=== PATIENT | male | born 1975 | race Caucasian/White ===

== ENCOUNTER 2021-05-19 14:52 | Emergency (ER) | payer OTHER ==
[2021-05-19] MEDS ORDERED: ceFAZolin 2 GM in Premix Bag 1 BAG IV ONE (17:00)
[2021-05-19] MEDS ORDERED: Bupivacaine 0.5% 10 ML SDV INJECT ONE (17:01)
--- NOTE | 2021-05-19 18:01 | CR ---
Indication: Fifth digit injury Technique: Three views left hand Comparison: None Findings/Impression: Soft tissue avulsion of the left 5th finger tip. Displaced fracture of the distal tuft. Remainder of the osseous structures are intact. Dictated by Pam Harrington MD @ 05/19/2021 6:00:[address] Pam Harrington @ May 19 2021 6:00PM
--- NOTE | 2021-05-19 18:29 | EDM.PDOC ---
ED HPI GENERAL MEDICAL PROBLEM - General Chief Complaint: Laceration Stated Complaint: LEFT HAND PINKY FINGER CUT OFF Time Seen by Provider: 05/19/21 16:21 Source of Information: Reports: Patient History Limitations: Reports: No Limitations - History of Present Illness INITIAL COMMENTS - FREE TEXT/NARRATIVE: HISTORY AND PHYSICAL: History of present illness: Patient is a 46-year-old male who presents emergency room today with concern of left hand pinky finger injury that occurred just prior to arrival to the emergency room. Patient states that his finger caught between 2 heavy piping while at work and states that the fingernail completely came off. Patient states that he is up-to-date on his tetanus within 5 years. Patient denies any other symptoms or concerns. Patient denies fever, chills, chest pain, shortness of breath, or cough. Denies headache, neck stiff ness, change in vision, syncope, or near syncope. Denies nausea, vomiting, abdominal pain, diarrhea, constipation, or dysuria. Has not noted any blood in urine or stool. Patient has been eating and drinking appropriately. Review of systems: As per history of present illness and below otherwise all systems reviewed and negative. Past medical history: As per history of present illness and as reviewed below otherwise noncontributory. Surgical history: As per history of present illness and as reviewed below otherwise noncontributory. Social history: See social history for further information Family history: As per history of present illness and as reviewed below otherwise noncontributory. Physical exam: General: Patient is alert, oriented, and in no acute distress. Patient sitting comfortably on exam table. Vitals stable and reviewed by me. HEENT: Atraumatic, normocephalic, pupils equal and reactive bilaterally, negative for conjunctival pallor or scleral icterus, mucous membranes moist, TMs normal bilaterally, throat clear, neck supple, nontender, trachea midline. No drooling or trismus noted. No meningeal signs. No hot potato voice noted. Lungs: Clear to auscultation, breath sounds equal bilaterally, chest nontender. Heart: S1S2, regular rate and rhythm without overt murmur Abdomen: Soft, nondistended, nontender. Negative for masses or hepatosplenomegaly. Negative for costovertebral tenderness. Pelvis: Stable nontender. Genitourinary: Deferred. Rectal: Deferred. Skin: Intact, warm, dry. No lesions or rashes noted. Extremities: The distal soft tissue of the left hand fifth digit is avulsed with an area of 3 mm x 3 mm exposed bone without surrounding tissue to cover this. Patient does have full range of motion of the digit without deficit. Radial pulses grossly intact of the left upper extremity with capillary refill less than 2 seconds. Otherwise, atraumatic, negative for cords or calf pain. Neurovascular unremarkable. Neuro: Awake, alert, oriented. Cranial nerves II through XII unremarkable. Cerebellum unremarkable. Motor and sensory unremarkable throughout. Exam nonfocal. Notes: Patient is a 46-year-old male who presents emergency room today with concern of left hand pinky finger injury that occurred just prior to travel to emergency room. Upon arrival to the ED, patient does have an avulsion of the soft tissue of the left hand fifth digit with a 3 mm x 3 mm area of exposed bone without any surrounding tissue to cover the exposed area. The area was heavily cleansed with chlorhexidine and 1000 cc of normal saline. Sterile dressing was placed by nursing staff. I did call and speak to the hand specialist escalator constructor, Dr. Bustillo, and thoroughly discussed patient's case. He would like the patient to be sent home with pobie Sabillon and to follow-up early in the clinic tomorrow morning with him. He request that patient do not eat or drink past midnight tonight. Upon reevaluation of patient, he remains vitally stable and comfortable throughout stay in ED. Strict return precautions thoroughly discussed with patient. Discussed importance for follow-up with Dr. Bustillo tomorrow morning. Voices understanding and is agreeable to plan of care. Denies any further questions or concerns at this time. Diagnostics: Hand XR Therapeutics: 2g Ancef IV, Sterile dressing placed by nursing staff Prescription: None Impression: Open tuft fracture, left, fifth digit Plan: 1. Take medication as prescribed. You can alternate ibuprofen and Tylenol as directed for pain and discomfort. 2. Do not eat or drink anything past midnight tonight. Follow-up with , hand specialist, in the morning in his clinic as discussed. 3. Return to the emergency room as needed and as discussed. Definitive disposition and diagnosis as appropriate pending reevaluation and review of above. L hand Pain Score (Numeric/FACES): 7 - Related Data Allergies Allergy/AdvReac Type Severity Reaction Status Date / Time naproxen Allergy Diarrhea Verified 05/19/21 16:44 Home Meds: Home Meds Albuterol Sulfate [Albuterol Sulfate HFA] 1 puff INH Q4H PRN 05/19/21 [History] Dextroamphetamine/Amphetamine [Adderall 20 mg Tablet] 20 mg PO BID 05/19/21 [H istory] Fluticasone Propion/Salmeterol [Advair 250-50 Diskus] 1 dose PO DAILY 05/19/21 [History] Losartan [Cozaar] 100 mg PO DAILY 05/19/21 [History] cephALEXin [Keflex] 500 mg PO Q8H 7 Days #21 cap 05/19/21 [Rx] Past Medical History HEENT History: Reports: None Cardiovascular History: Reports: Hypertension Respiratory History: Reports: Asthma Gastrointestinal History: Reports: Other (See Below) Other Gastrointestinal History: abdominal hernia Genitourinary History: Reports: None Musculoskeletal History: Reports: Other (See Below) Other Musculoskeletal History: carpal tunnel, pt reports bilateral elbow ligament tear Neurological History: Reports: None Psychiatric History: Reports: ADHD Endocrine/Metabolic History: Reports: Obesity/BMI 30+ Hematologic History: Reports: None Immunologic History: Reports: None Oncologic (Cancer) History: Reports: None Dermatologic History: Reports: None - Infectious Disease History Infectious Disease History: Reports: Chicken Pox, Shingles - Past Surgical History Head Surgeries/Procedures: Reports: None Cardiovascular Surgical History: Reports: None Respiratory Surgical History: Reports: None GI Surgical History: Reports: Hernia, Abdominal Male Surgical History: Reports: None Endocrine Surgical History: Reports: None Musculoskeletal Surgical History: Reports: Other (See Below) Other Musculoskeletal Surgeries/Procedures:: bilateral elbow ligament repair Social & Family History - Family History Family Medical History: No Pertinent Family History - Tobacco Use Tobacco Use Status *Q: Current Every Day Tobacco User Years of Tobacco use: 35 Packs/Tins Daily: 0.5 - Caffeine Use Caffeine Use: Reports: Coffee - Recreational Drug Use Recreational Drug Use: No ED ROS GENERAL - Review of Systems Review Of Systems: Comprehensive ROS is negative, except as noted in HPI. ED EXAM, SKIN/RASH Exam: See Below (See dictation) Course - Vital Signs Last Recorded V/S: Last Vital Signs Temp 98 F 05/19/21 18:51 Pulse 87 05/19/21 18:51 Resp 16 05/19/21 18:51 BP 113/89 05/19/21 18:51 Pulse Ox 97 05/19/21 18:51 - Orders/Labs/Meds Meds: Medications Discontinued Medications Generic Name Dose Route Start Last Admin Trade Name Demetrius PRN Reason Stop Dose Admin Bupivacaine HCl 10 ml 05/19/21 17:01 05/19/21 17:05 Bupivacaine 0.5% 10 Ml Sdv INJECT 05/19/21 17:02 10 ml ONETIME ONE Administration Cefazolin Sodium/Dextrose 2 gm 50 mls @ 100 mls/hr 05/19/21 17:00 05/19/21 17:05 / Premix IV 05/19/21 17:29 100 mls/hr ONETIME ONE Administration Lidocaine HCl 5 ml 05/19/21 17:01 05/19/21 17:05 Lidocaine 1% 5 Ml Sdv INJECT 05/19/21 17:02 5 ml ONETIME ONE Administration Departure - Departure Time of Disposition: 18:28 Disposition: Home, Self-Care 01 Clinical Impression: Open fracture of tuft of distal phalanx of finger - Discharge Information Prescriptions: cephALEXin [Keflex] 500 mg PO Q8H 7 Days #21 cap Instructions: Finger Fracture, Adult, [id number] Referrals: JUAN DAVID CARDOSO [Other] Forms: ED Department Discharge Additional Instructions: The following information is given to patients seen in the emergency department who are being discharged to home. This information is to outline your options for follow-up care. We provide all patients seen in our emergency department with a follow-up referral. The need for follow-up, as well as the timing and circumstances, are variable depending upon the specifics of your emergency department visit. If you don't have a primary care physician on staff, we will provide you with a referral. We always advise you to contact your personal physician following an emergency department visit to inform them of the circumstance of the visit and for follow-up with them and/or the need for any referrals to a consulting specialist. The emergency department will also refer you to a specialist when appropriate. This referral assures that you have the opportunity for follow-up care with a specialist. All of these measure are taken in an effort to provide you with optimal care, which includes your follow-up. Under all circumstances we always encourage you to contact your private physician who remains a resource for coordinating your care. When calling for follow-up care, please make the office aware that this follow-up is from your recent emergency room visit. If for any reason you are refused follow-up, please contact the [facility] Emergency Department at and asked to speak to the emergency department charge nurse. [facility], Hand and Wrist Surgery, Dr. Bustillo [address], [place] [address] PH: [phone] 1. Take medication as prescribed. You can alternate ibuprofen and Tylenol as directed for pain and discomfort. 2. Do not eat or drink anything past midnight tonight. Follow-up with , hand specialist, in the morning in his clinic as discussed. 3. Return to the emergency room as needed and as discussed. Sepsis Event Note (ED) - Evaluation Sepsis Screening Result: No Definite Risk - Focused Exam Vital Signs: Vital Signs Temp Pulse Resp BP Pulse Ox 05/19/21 18:51 98 F 87 16 113/89 97 05/19/21 16:41 97.5 F 92 20 138/92 H 97
== END 2021-05-19 19:11 | disposition home or self-care (01) ==
LOC: MW.ED 14:52
DX: S62.637B Displaced fracture of distal phalanx of left little finger, initial encounter for open fracture (principal); E66.9 Obesity, unspecified; Z88.5 Allergy status to narcotic agent; Z72.0 Tobacco use; Z68.37 Body mass index [BMI] 37.0-37.9, adult; Z79.899 Other long term (current) drug therapy; W23.0XXA Caught, crushed, jammed, or pinched between moving objects, initial encounter; Y99.0 Civilian activity done for income or pay
CPT/HCPCS: 73130; 96365; 99283; J0690; J3490

== ENCOUNTER 2021-10-19 12:43 | Emergency (ER) | payer OTHER ==
[2021-10-19] MEDS ORDERED: Acetaminophen/oxyCODONE 325-5 MG Tab PO ONE (15:26)
[2021-10-19] MEDS ORDERED: Ketorolac 60 MG/2 ML SDV IM ONE (15:26)
[2021-10-19] MEDS ORDERED: Orphenadrine 60 MG/2 ML Inj IM ONE (15:26)
== END 2021-10-19 16:44 | disposition home or self-care (01) ==
LOC: MW.ED 12:43
DX: R07.81 Pleurodynia (principal); I10 Essential (primary) hypertension; J45.909 Unspecified asthma, uncomplicated; E66.9 Obesity, unspecified; Z68.36 Body mass index [BMI] 36.0-36.9, adult; Z88.6 Allergy status to analgesic agent; Z79.899 Other long term (current) drug therapy
CPT/HCPCS: 71101; 96372; 99283; A9270; J1885; J2360